=== PATIENT | male | born 1980 | race Asian ===

== ENCOUNTER 2017-08-18 03:53 | Inpatient (IN) | payer OTHER ==
[2017-08-18] VITALS (7 sets, daily range): BP systolic 101–127; BP diastolic 60–78
[~2017-08-18] VITALS: Ht 175.3 cm; Wt 66.0 kg
[2017-08-18 06:05] LABS: BASOPHIL % 0.3 % (0-2); PLATELET COUNT 306 x10^3mcL (130-400)
[2017-08-18 06:12] LABS: CALCIUM 8.9 mg/dL (8.5-10.1); CARBON DIOXIDE 25.4 mmol/L (21-32); CHLORIDE SERUM 103 mmol/L (98-107); CREATININE SERUM 0.4 mg/dL (0.7-1.3); GFR1 > 60 mL/min; GLUCOSE SERUM 84 mg/dL (74-106); POTASSIUM SERUM 3.2 mmol/L (3.5-5.1); RED CELL DISTRIBUTION WIDTH 16.9 % (11.5-14.5); SODIUM SERUM 139 mmol/L (136-145)
[2017-08-18 06:15] LABS: ALBUMIN 3.2 g/dL (3.4-5.0); ALKALINE PHOSPHATASE 62 U/L (46-116); ALT/SGPT 15 U/L (16-63); AST/SGOT 7 U/L (15-37); BILIRUBIN TOTAL 1.3 mg/dL (0.20-1.00)
[2017-08-18] MEDS ORDERED: METFORMIN500 M1 PO (06:37)
[2017-08-18] MEDS ORDERED: DULCOLAX10 M1 RC (06:38)
[2017-08-18] MEDS ORDERED: VENTOLIN H0.09 MG/A1 IH (06:38)
[2017-08-18 11:20] LABS: microscopic required? YES; urine erythrocyte 1+ (NEGATIVE)
[2017-08-18 11:31] LABS: AMPHETAMINE QUAL UR NONE DETECTED (NEG <=1000)
[2017-08-18 14:42] LABS: PHOSPHOROUS 3.3 mg/dL (2.5-4.9)
[2017-08-18 14:45] LABS: CHOLESTEROL/HDL RATIO 2.9
[2017-08-18 14:51] LABS: T3 TOTAL 0.74 ng/mL
[2017-08-18 15:40] LABS: FREE T4 1.17 ng/dL (0.76-1.46); FREE THYROXINE INDEX 2.4 ug/dL (1.4-4.5); T4(THYROXINE) 6.6 ug/dL (4.7-13.3)
[2017-08-19 05:43] VITALS: BP 102/58
[2017-08-19 10:06] VITALS: BP 110/75
[2017-08-19 13:57] VITALS: BP 107/65
[2017-08-19 15:05] VITALS: Ht 175.3 cm; Wt 66.0 kg
[2017-08-19 17:32] LABS: BASOPHIL % 0.2 % (0-2); PLATELET COUNT 304 x10^3mcL (130-400)
[2017-08-19 17:35] LABS: RED CELL DISTRIBUTION WIDTH 16.9 % (11.5-14.5)
[2017-08-19 17:59] VITALS: BP 111/69
[2017-08-19 18:06] LABS: CALCIUM 8.6 mg/dL (8.5-10.1); CREATININE SERUM 0.4 mg/dL (0.7-1.3); GFR1 > 60 mL/min; GLUCOSE SERUM 99 mg/dL (74-106); PHOSPHOROUS 3.6 mg/dL (2.5-4.9)
[2017-08-19 18:16] LABS: CHLORIDE SERUM 106 mmol/L (98-107); POTASSIUM SERUM 3.7 mmol/L (3.5-5.1); SODIUM SERUM 140 mmol/L (136-145)
[2017-08-19 18:17] LABS: CARBON DIOXIDE 26.8 mmol/L (21-32)
[2017-08-19 21:17] VITALS: BP 97/56
[2017-08-20 06:09] VITALS: BP 112/70
[2017-08-20 06:39] LABS: CALCIUM 8.7 mg/dL (8.5-10.1); CARBON DIOXIDE 25.7 mmol/L (21-32); CHLORIDE SERUM 108 mmol/L (98-107); CREATININE SERUM 0.4 mg/dL (0.7-1.3); GFR1 > 60 mL/min; GLUCOSE SERUM 87 mg/dL (74-106); PHOSPHOROUS 4.3 mg/dL (2.5-4.9); POTASSIUM SERUM 3.3 mmol/L (3.5-5.1); SODIUM SERUM 142 mmol/L (136-145)
[2017-08-20 06:45] LABS: IRON 30 ug/dL (65-170); TOTAL IRON BINDING CAPACITY 172 ug/dL (250-450)
[2017-08-20 06:48] LABS: BASOPHIL % 0.6 % (0-2); PLATELET COUNT 314 x10^3mcL (130-400)
[2017-08-20 07:46] LABS: RED CELL DISTRIBUTION WIDTH 16.5 % (11.5-14.5)
[2017-08-20 08:23] VITALS: BP 125/77
[2017-08-20 11:40] VITALS: BP 124/75
[2017-08-20 13:16] VITALS: BP 124/75
[2017-08-20] MEDS ORDERED: HIBICLENS118 ML TOP (13:46)
[2017-08-20] MEDS ORDERED: VITC PO (13:46)
[2017-08-20] MEDS ORDERED: LAC PO ×2 (13:46→15:22)
[2017-08-20] MEDS ORDERED: BACO TOP (13:46)
[2017-08-20] MEDS ORDERED: FER300 PO (13:46)
[2017-08-20] MEDS ORDERED: LEVAQUIN750 MG PO (13:46)
[2017-08-20] MEDS ORDERED: BACTRIM DS1 TAB PO (15:22)
[2017-08-21 15:06] LABS: TRANSFERRIN 157 mg/dL (200-370)
== END 2017-08-20 16:30 | disposition home or self-care (01) | DRG 364 ==
LOC: ED 03:53 → DU 05:58
PROVIDERS: Emergency Medicine; Surgery; ADMIT Family Medicine Sports Medicine
PROC: 0J990ZZ Drainage of Buttock Subcutaneous Tissue and Fascia, Open Approach (ICD-10-PCS; principal; 2017-08-18 09:00)
DX: L02.31 Cutaneous abscess of buttock (principal); N17.0 Acute kidney failure with tubular necrosis; E44.0 Moderate protein-calorie malnutrition; D68.69 Other thrombophilia; E11.59 Type 2 diabetes mellitus with other circulatory complications; G82.20 Paraplegia, unspecified; B95.62 Methicillin resistant Staphylococcus aureus infection as the cause of diseases classified elsewhere; N39.0 Urinary tract infection, site not specified; B96.20 Unspecified Escherichia coli [E. coli] as the cause of diseases classified elsewhere; D50.9 Iron deficiency anemia, unspecified; J45.909 Unspecified asthma, uncomplicated; E87.6 Hypokalemia; Z68.21 Body mass index [BMI] 21.0-21.9, adult; Z99.3 Dependence on wheelchair; Z79.84 Long term (current) use of oral hypoglycemic drugs; Z16.24 Resistance to multiple antibiotics
CPT/HCPCS: 82962; 83880; 84439; 90658; 90732; 94150; J2250; J2543; J3010; J3480; J7030; J7620; Q0092

== ENCOUNTER 2017-10-29 14:53 | Inpatient (IN) | payer OTHER ==
[~2017-10-29] VITALS: Ht 175.3 cm; Wt 63.3 kg
[~2017-10-29 14:53] MED LIST: BACO TOP; BACTRIM DS1 TAB PO; DULCOLAX10 M1 RC; FER300 PO; HIBICLENS118 ML TOP; LAC PO; LEVAQUIN750 MG PO; METFORMIN500 M1 PO; VENTOLIN H0.09 MG/A1 IH; VITC PO
[2017-10-29] MEDS ORDERED: DULCOLAX5 M1 PO (16:28)
[2017-10-29] MEDS ORDERED: MULTI-VITAMINS1 TAB PO (16:29)
[2017-10-29 17:09] LABS: CALCIUM 8.5 mg/dL (8.5-10.1); CARBON DIOXIDE 23.8 mmol/L (21-32); CHLORIDE SERUM 97 mmol/L (98-107); CREATININE SERUM 0.6 mg/dL (0.7-1.3); GFR1 > 60 mL/min; GLUCOSE SERUM 102 mg/dL (74-106); POTASSIUM SERUM 3.5 mmol/L (3.5-5.1); SODIUM SERUM 131 mmol/L (136-145)
[2017-10-29 17:14] LABS: PLATELET COUNT 416 x10^3mcL (130-400); RED CELL DISTRIBUTION WIDTH 14.6 % (11.5-14.5)
[2017-10-29 17:20] LABS: ALKALINE PHOSPHATASE 95 U/L (46-116); ALT/SGPT 32 U/L (16-63); AST/SGOT 22 U/L (15-37); BILIRUBIN TOTAL 0.8 mg/dL (0.20-1.00)
[2017-10-29 17:23] LABS: ALBUMIN 2.4 g/dL (3.4-5.0); TOTAL PROTEIN, SERUM 8.3 g/dL (6.4-8.2)
[2017-10-29 17:27] LABS: BAND NEUTROPHIL 4 % (0-10); BASOPHIL 0 % (0-2); MONOCYTE 7 % (0-7); SEGMENTED NEUTROPHILS 83 % (37-75); rbc morphology (normal/abnorm) ABNORMAL (NORMAL)
[2017-10-29 18:16] LABS: UA SPECIFIC GRAVITY <=1.005 (1.005-1.035); microscopic required? YES; urine erythrocyte TRACE (NEGATIVE)
[2017-10-29 19:35] LABS: MAGNESIUM 1.9 mg/dL (1.8-2.4); PHOSPHOROUS 3.3 mg/dL (2.5-4.9)
[2017-10-29 19:36] LABS: CHOLESTEROL/HDL RATIO 5.5
[2017-10-29 19:46] LABS: T3 TOTAL 0.71 ng/mL
[2017-10-29 19:59] LABS: FREE T4 1.42 ng/dL (0.76-1.46); FREE THYROXINE INDEX 2.8 ug/dL (1.4-4.5); T4(THYROXINE) 6.7 ug/dL (4.7-13.3)
[2017-10-29 20:04] VITALS: BP 107/66
[2017-10-29 22:45] LABS: AMPHETAMINE QUAL UR NONE DETECTED (NEG <=1000)
[2017-10-30 00:15] VITALS: BP 107/66
[2017-10-30 06:19] VITALS: BP 103/55
[2017-10-30 06:41] LABS: CALCIUM 8.3 mg/dL (8.5-10.1); CHLORIDE SERUM 103 mmol/L (98-107); CREATININE SERUM 0.6 mg/dL (0.7-1.3); GFR1 > 60 mL/min; GLUCOSE SERUM 100 mg/dL (74-106); MAGNESIUM 1.9 mg/dL (1.8-2.4); PHOSPHOROUS 4.3 mg/dL (2.5-4.9); POTASSIUM SERUM 3.8 mmol/L (3.5-5.1); SODIUM SERUM 137 mmol/L (136-145)
[2017-10-30 06:51] LABS: BASOPHIL % 0.1 % (0-2); PLATELET COUNT 353 x10^3mcL (130-400); RED CELL DISTRIBUTION WIDTH 14.3 % (11.5-14.5)
[2017-10-30 08:37] LABS: rbc morphology (normal/abnorm) ABNORMAL (NORMAL)
[2017-10-30 08:38] LABS: target cell (codocyte) 1+
[2017-10-30 09:42] VITALS: BP 102/62
[2017-10-30 12:35] VITALS: BP 106/59
[2017-10-30 14:03] VITALS: BP 104/63
[2017-10-30 22:19] VITALS: BP 99/53
[2017-10-31 05:38] LABS: BASOPHIL % 0.4 % (0-2); PLATELET COUNT 349 x10^3mcL (130-400)
[2017-10-31 05:45] LABS: RED CELL DISTRIBUTION WIDTH 14.9 % (11.5-14.5)
[2017-10-31 05:56] VITALS: BP 99/53
[2017-10-31 10:33] VITALS: BP 111/62
[2017-10-31] MEDS ORDERED: CLEOCIN HCL300 MG PO (14:05)
[2017-10-31] MEDS ORDERED: LEVAQUIN750 MG PO (14:06)
[2017-10-31] MEDS ORDERED: LAC PO (14:07)
[2017-10-31 14:34] VITALS: BP 111/62
[2017-10-31 15:24] VITALS: BP 114/62
== END 2017-10-31 15:52 | disposition home or self-care (01) | DRG 710 ==
LOC: ED 14:53 → DU 18:28
PROVIDERS: Emergency Medicine; Surgery; ADMIT Family Medicine
PROC: 0J990ZZ Drainage of Buttock Subcutaneous Tissue and Fascia, Open Approach (ICD-10-PCS; principal; 2017-10-30 11:00)
DX: A41.9 Sepsis, unspecified organism (principal); N17.0 Acute kidney failure with tubular necrosis; E43 Unspecified severe protein-calorie malnutrition; G82.20 Paraplegia, unspecified; E87.8 Other disorders of electrolyte and fluid balance, not elsewhere classified; R65.20 Severe sepsis without septic shock; T83.511A Infection and inflammatory reaction due to indwelling urethral catheter, initial encounter; L02.214 Cutaneous abscess of groin; L02.31 Cutaneous abscess of buttock; L03.317 Cellulitis of buttock; B95.62 Methicillin resistant Staphylococcus aureus infection as the cause of diseases classified elsewhere; E87.1 Hypo-osmolality and hyponatremia; N39.0 Urinary tract infection, site not specified; R31.9 Hematuria, unspecified; B96.1 Klebsiella pneumoniae [K. pneumoniae] as the cause of diseases classified elsewhere; B96.5 Pseudomonas (aeruginosa) (mallei) (pseudomallei) as the cause of diseases classified elsewhere; T14.8XXS Other injury of unspecified body region, sequela; D50.9 Iron deficiency anemia, unspecified; J45.909 Unspecified asthma, uncomplicated; Z68.20 Body mass index [BMI] 20.0-20.9, adult; Z99.3 Dependence on wheelchair; Z87.891 Personal history of nicotine dependence; W34.00XS Accidental discharge from unspecified firearms or gun, sequela; Y84.6 Urinary catheterization as the cause of abnormal reaction of the patient, or of later complication, without mention of misadventure at the time of the procedure; Y92.009 Unspecified place in unspecified non-institutional (private) residence as the place of occurrence of the external cause
CPT/HCPCS: 36600; 82962; 83880; 84439; J1644; J2250; J2405; J2543; J3010; J3370; J3535; J7030; J7620; Q0092; Q9967

== ENCOUNTER 2017-11-03 16:39 | Emergency (ER) | payer OTHER ==
[~2017-11-03] VITALS: Ht 175.3 cm; Wt 68.0 kg
[~2017-11-03 16:39] MED LIST changes: +CLEOCIN HCL300 MG PO; +DULCOLAX5 M1 PO; +MULTI-VITAMINS1 TAB PO
[2017-11-03 16:41] VITALS: Ht 175.3 cm; Wt 68.0 kg
[2017-11-03 18:02] LABS: BASOPHIL % 0.2 % (0-2)
[2017-11-03 18:10] LABS: CALCIUM 9.5 mg/dL (8.5-10.1); CARBON DIOXIDE 28.1 mmol/L (21-32); CHLORIDE SERUM 98 mmol/L (98-107); CREATININE SERUM 0.6 mg/dL (0.7-1.3); GFR1 > 60 mL/min; GLUCOSE SERUM 104 mg/dL (74-106); SODIUM SERUM 135 mmol/L (136-145)
[2017-11-03 18:11] LABS: PLATELET COUNT 628 x10^3mcL (130-400); RED CELL DISTRIBUTION WIDTH 14.7 % (11.5-14.5)
[2017-11-03 18:14] LABS: ALKALINE PHOSPHATASE 83 U/L (46-116); ALT/SGPT 33 U/L (16-63); AST/SGOT 17 U/L (15-37); BILIRUBIN TOTAL 0.5 mg/dL (0.20-1.00)
[2017-11-03 18:15] LABS: ALBUMIN 2.8 g/dL (3.4-5.0); TOTAL PROTEIN, SERUM 9.9 g/dL (6.4-8.2)
[2017-11-03 18:32] VITALS: BP 121/87
== END 2017-11-03 18:52 | disposition home or self-care (01) ==
LOC: ED 16:39
PROVIDERS: Emergency Medicine
DX: R55 Syncope and collapse (principal); D50.9 Iron deficiency anemia, unspecified
CPT/HCPCS: 36415

== ENCOUNTER 2017-12-04 18:57 | Inpatient (IN) | payer OTHER ==
[~2017-12-04] VITALS: Ht 175.3 cm; Wt 67.6 kg
[2017-12-04] MEDS ORDERED: DULCOLAX5 M1 PO (21:37)
[2017-12-04] MEDS ORDERED: IMO2 PO (21:37)
[2017-12-04 21:57] LABS: BASOPHIL % 0.2 % (0-2)
[2017-12-04 22:02] LABS: CALCIUM 9.4 mg/dL (8.5-10.1); CHLORIDE SERUM 99 mmol/L (98-107); CREATININE SERUM 0.8 mg/dL (0.7-1.3); GFR1 > 60 mL/min; GLUCOSE SERUM 90 mg/dL (74-106); SODIUM SERUM 139 mmol/L (136-145)
[2017-12-04 22:04] LABS: RED CELL DISTRIBUTION WIDTH 16.4 % (11.5-14.5)
[2017-12-04 22:08] LABS: ALKALINE PHOSPHATASE 86 U/L (46-116); ALT/SGPT 23 U/L (16-63); AST/SGOT 27 U/L (15-37); BILIRUBIN TOTAL 0.41 mg/dL (0.20-1.00)
[2017-12-04 22:09] LABS: ALBUMIN 2.9 g/dL (3.4-5.0); TOTAL PROTEIN, SERUM 10.3 g/dL (6.4-8.2)
[2017-12-04 22:15] LABS: PLATELET COUNT 629 x10^3mcL (130-400)
[2017-12-04 22:34] VITALS: BP 128/76
[2017-12-04 22:39] LABS: T3 TOTAL 0.84 ng/mL
[2017-12-04 22:53] LABS: MAGNESIUM 2.2 mg/dL (1.8-2.4); PHOSPHOROUS 5.1 mg/dL (2.5-4.9)
[2017-12-04 22:55] LABS: FREE T4 1.31 ng/dL (0.76-1.46); FREE THYROXINE INDEX 3.6 ug/dL (1.4-4.5); T4(THYROXINE) 9.2 ug/dL (4.7-13.3)
[2017-12-04 23:06] LABS: CHOLESTEROL/HDL RATIO 6.4
[2017-12-05 01:13] LABS: UA SPECIFIC GRAVITY 1.025 (1.005-1.035); microscopic required? YES; urine erythrocyte TRACE (NEGATIVE)
[2017-12-05 02:58] LABS: AMPHETAMINE QUAL UR NONE DETECTED (NEG <=1000)
[2017-12-05 07:03] LABS: IRON 21 ug/dL (65-170); TOTAL IRON BINDING CAPACITY 173 ug/dL (250-450)
[2017-12-05 07:11] LABS: CALCIUM 8.6 mg/dL (8.5-10.1); CARBON DIOXIDE 25.7 mmol/L (21-32); CHLORIDE SERUM 104 mmol/L (98-107); CREATININE SERUM 0.6 mg/dL (0.7-1.3); GFR1 > 60 mL/min; GLUCOSE SERUM 108 mg/dL (74-106); MAGNESIUM 2.1 mg/dL (1.8-2.4); PHOSPHOROUS 4.2 mg/dL (2.5-4.9); POTASSIUM SERUM 4.2 mmol/L (3.5-5.1); SODIUM SERUM 139 mmol/L (136-145)
[2017-12-05 08:25] LABS: BASOPHIL % 0.4 % (0-2); RED CELL DISTRIBUTION WIDTH 16.1 % (11.5-14.5)
[2017-12-05 08:26] LABS: PLATELET COUNT 514 x10^3mcL (130-400)
[2017-12-05 08:36] LABS: rbc morphology (normal/abnorm) ABNORMAL (NORMAL); target cell (codocyte) 1+
[2017-12-05 10:13] VITALS: BP 113/68
[2017-12-05 12:20] VITALS: BP 110/70
[2017-12-05 14:17] VITALS: BP 113/73
[2017-12-05 17:50] VITALS: BP 116/70
[2017-12-05 21:30] VITALS: BP 116/57
[2017-12-06 06:05] VITALS: BP 96/58
[2017-12-06 09:36] VITALS: BP 116/67
[2017-12-06 09:46] LABS: BASOPHIL % 0.3 % (0-2)
[2017-12-06 09:47] LABS: PLATELET COUNT 442 x10^3mcL (130-400); RED CELL DISTRIBUTION WIDTH 16.3 % (11.5-14.5)
[2017-12-06 09:56] LABS: CALCIUM 8.3 mg/dL (8.5-10.1); CARBON DIOXIDE 24.9 mmol/L (21-32); CHLORIDE SERUM 105 mmol/L (98-107); CREATININE SERUM 0.6 mg/dL (0.7-1.3); GFR1 > 60 mL/min; GLUCOSE SERUM 149 mg/dL (74-106); MAGNESIUM 1.8 mg/dL (1.8-2.4); PHOSPHOROUS 3.6 mg/dL (2.5-4.9); POTASSIUM SERUM 3.8 mmol/L (3.5-5.1); SODIUM SERUM 138 mmol/L (136-145)
[2017-12-06 11:01] LABS: rbc morphology (normal/abnorm) ABNORMAL (NORMAL); target cell (codocyte) 1+; tear drop cell (dacryocyte) 1+
[2017-12-06 13:00] VITALS: BP 117/75
[2017-12-06 18:54] VITALS: BP 101/55
[2017-12-06 21:32] VITALS: BP 124/69
[2017-12-07 05:51] VITALS: BP 110/64
[2017-12-07 07:05] LABS: BASOPHIL % 0.1 % (0-2)
[2017-12-07 07:18] LABS: RED CELL DISTRIBUTION WIDTH 17.1 % (11.5-14.5)
[2017-12-07 07:19] LABS: PLATELET COUNT 494 x10^3mcL (130-400)
[2017-12-07 10:09] VITALS: BP 108/65
[2017-12-07 13:56] VITALS: Ht 175.3 cm; Wt 67.6 kg
[2017-12-07 21:55] VITALS: BP 117/70
[2017-12-08 04:55] VITALS: BP 114/75
[2017-12-08 08:40] VITALS: BP 109/70
[2017-12-08 09:44] LABS: BASOPHIL % 0.8 % (0-2)
[2017-12-08 09:47] LABS: RED CELL DISTRIBUTION WIDTH 17.3 % (11.5-14.5)
[2017-12-08 09:48] LABS: PLATELET COUNT 516 x10^3mcL (130-400)
[2017-12-08 09:49] LABS: CALCIUM 8.7 mg/dL (8.5-10.1); CARBON DIOXIDE 28.8 mmol/L (21-32); CHLORIDE SERUM 103 mmol/L (98-107); CREATININE SERUM 0.5 mg/dL (0.7-1.3); GFR1 > 60 mL/min; GLUCOSE SERUM 119 mg/dL (74-106); PHOSPHOROUS 4.8 mg/dL (2.5-4.9); POTASSIUM SERUM 4.3 mmol/L (3.5-5.1); SODIUM SERUM 141 mmol/L (136-145)
[2017-12-08 09:50] LABS: rbc morphology (normal/abnorm) ABNORMAL (NORMAL)
[2017-12-08 18:08] VITALS: BP 121/86
[2017-12-08 20:21] VITALS: BP 100/59
[2017-12-09 05:12] VITALS: BP 124/89
[2017-12-09 07:46] LABS: BASOPHIL % 0.4 % (0-2)
[2017-12-09 08:01] LABS: CALCIUM 8.8 mg/dL (8.5-10.1); CARBON DIOXIDE 28.3 mmol/L (21-32); CHLORIDE SERUM 104 mmol/L (98-107); CREATININE SERUM 0.6 mg/dL (0.7-1.3); GFR1 > 60 mL/min; GLUCOSE SERUM 135 mg/dL (74-106); POTASSIUM SERUM 3.9 mmol/L (3.5-5.1); SODIUM SERUM 142 mmol/L (136-145)
[2017-12-09 08:02] LABS: PLATELET COUNT 528 x10^3mcL (130-400)
[2017-12-09 08:04] LABS: rbc morphology (normal/abnorm) ABNORMAL (NORMAL)
[2017-12-09 10:52] VITALS: BP 122/71
[2017-12-09 18:10] VITALS: BP 107/55
[2017-12-09 21:06] VITALS: BP 105/60
[2017-12-10 05:28] VITALS: BP 111/70
[2017-12-10 06:50] LABS: BASOPHIL % 0.4 % (0-2)
[2017-12-10 06:57] LABS: CALCIUM 8.7 mg/dL (8.5-10.1); CARBON DIOXIDE 29.6 mmol/L (21-32); CHLORIDE SERUM 105 mmol/L (98-107); CREATININE SERUM 0.6 mg/dL (0.7-1.3); GFR1 > 60 mL/min; GLUCOSE SERUM 99 mg/dL (74-106); POTASSIUM SERUM 4.1 mmol/L (3.5-5.1); SODIUM SERUM 141 mmol/L (136-145)
[2017-12-10 06:58] LABS: PLATELET COUNT 515 x10^3mcL (130-400); RED CELL DISTRIBUTION WIDTH 17.5 % (11.5-14.5)
[2017-12-10 06:59] LABS: rbc morphology (normal/abnorm) ABNORMAL (NORMAL)
[2017-12-10 09:48] VITALS: BP 112/70
[2017-12-10 17:23] VITALS: BP 112/64
[2017-12-10 21:46] VITALS: BP 110/66
[2017-12-11 06:15] LABS: BASOPHIL % 0.5 % (0-2)
[2017-12-11 06:25] VITALS: BP 103/63
[2017-12-11 07:25] LABS: PLATELET COUNT 512 x10^3mcL (130-400)
[2017-12-11 10:08] VITALS: BP 115/79
[2017-12-11 16:24] VITALS: BP 113/78
[2017-12-11 21:17] VITALS: BP 122/76
[2017-12-12 05:59] VITALS: BP 126/78
[2017-12-12 07:18] LABS: BASOPHIL % 0.3 % (0-2)
[2017-12-12 07:19] LABS: PLATELET COUNT 469 x10^3mcL (130-400); RED CELL DISTRIBUTION WIDTH 17.4 % (11.5-14.5)
[2017-12-12 17:33] VITALS: BP 122/81
[2017-12-12 21:53] VITALS: BP 110/64
[2017-12-13 05:21] VITALS: BP 96/63
[2017-12-13] MEDS ORDERED: AMERINET CHOICE1 G1 IV (16:39)
[2017-12-13 17:13] VITALS: BP 96/63
== END 2017-12-13 18:08 | disposition home health service (06) | DRG 380 ==
LOC: ED 18:57 → DU 21:32 → MU 12-07 09:07
PROVIDERS: Emergency Medicine; Family Medicine; Family Medicine Sports Medicine; Surgery
PROC: 0JB90ZZ Excision of Buttock Subcutaneous Tissue and Fascia, Open Approach (ICD-10-PCS; 2017-12-05)
PROC: 0JBM0ZZ Excision of Left Upper Leg Subcutaneous Tissue and Fascia, Open Approach (ICD-10-PCS; principal; 2017-12-05 10:30)
PROC: 05HB33Z Insertion of Infusion Device into Right Basilic Vein, Percutaneous Approach (ICD-10-PCS; 2017-12-11)
DX: L89.324 Pressure ulcer of left buttock, stage 4 (principal); N17.0 Acute kidney failure with tubular necrosis; E43 Unspecified severe protein-calorie malnutrition; G82.20 Paraplegia, unspecified; S24.103S Unspecified injury at T7-T10 level of thoracic spinal cord, sequela; M86.9 Osteomyelitis, unspecified; E83.39 Other disorders of phosphorus metabolism; B96.20 Unspecified Escherichia coli [E. coli] as the cause of diseases classified elsewhere; E11.9 Type 2 diabetes mellitus without complications; N39.0 Urinary tract infection, site not specified; E78.5 Hyperlipidemia, unspecified; D50.9 Iron deficiency anemia, unspecified; Z16.12 Extended spectrum beta lactamase (ESBL) resistance; Z16.24 Resistance to multiple antibiotics; X95.9XXS Assault by unspecified firearm discharge, sequela
CPT/HCPCS: 82962; 83880; 84439; 94150; C1751; J0690; J1170; J1580; J1642; J1644; J1956; J2001; J2060; J2185; J2250; J2543; J3370; J3490; J3535; J7030; Q0092; Q9967

== ENCOUNTER 2019-06-24 01:02 | Emergency (ER) | payer OTHER ==
[~2019-06-24] VITALS: Ht 167.6 cm; Wt 72.6 kg
[~2019-06-24 01:02] MED LIST changes: +AMERINET CHOICE1 G1 IV; +IMO2 PO
[2019-06-24 01:05] VITALS: Ht 167.6 cm; Wt 72.6 kg
[2019-06-24 02:34] VITALS: BP 147/99
== END 2019-06-24 02:39 | disposition home or self-care (01) ==
LOC: ED 01:02
DX: Z46.6 Encounter for fitting and adjustment of urinary device (principal); J45.909 Unspecified asthma, uncomplicated; E11.9 Type 2 diabetes mellitus without complications
CPT/HCPCS: 76770; Q0092